=== PATIENT | male | born 1940 | race African-American/Black ===

== ENCOUNTER 2017-09-21 18:29 | Emergency (ER) | payer OTHER ==
[~2017-09-21] VITALS: Ht 177.8 cm; Wt 97.5 kg
--- NOTE | ~2017-09-21 | EKG ---
[facility] [place] [address] [place] [address] ELECTROCARDIOGRAM REPORT Name: MISBAH BARRIENTOS Room #: [facility] [id number] Admission: 09/21/17 Attend Phys: Discharge: 09/21/17 Date of : 40 Report #: [id number] THIS REPORT FOR: //name// [facility] ED Test Date: 2017-09-21 Test Time: 19:22:25 Pat Name: MISBAH BARRIENTOS Department: Room: Gender: M [employer]: TYRA : [id number] Requested By: Anthony Mcmillan Order Number: [id number] MD: Corey Mistry Measurements Intervals [place] Rate: 76 P: 50 [place]: 166 QRS: -33 QRSD: 150 T: 1 QT: 444 QTc: 500 Interpretive Statements Sinus rhythm Probable left atrial enlargement Right bundle branch block Baseline wander in lead(s) V1 Compared to ECG 01/27/2017 12:43:03 Sinus bradycardia no longer present Electronically Signed On 09-22-2017 13:22:26 CDT by Corey Mistry [email or web address] <ELECTRONICALLY SIGNED> By: Corey Mistry MD, [facility] 09/22/17 132 21 21 Corey Mistry MD, [facility] /EPI
[~2017-09-21 18:29] MED LIST: ACTOS 30 MG TAB30 M1 PO; ANTIVERT25 MG PO; DOXYCYCLINE 10100 MG PO; ENALAPRIL MALEA20 MG PO; GLUCOTROL XL5 MG PO; GLUCOTROL5 MG PO; HYDROCHLOROTHIA25 M1 PO; NAPROSYN250 MG PO; NORCO 5-325 TA1 EACH PO; PENICILLIN VK500 MG PO; SIMVASTATIN20 MG PO
[2017-09-21 20:27] LABS: ANION GAP 8 mmol/L (7-16); BUN 20 mg/dL (7-18); CALCIUM 8.9 mg/dL (8.5-10.1); CHLORIDE 110 mmol/L (98-107); CO2 26 mmol/L (21-32); CREATININE 1.5 mg/dL (0.7-1.3); GLUCOSE 142 mg/dL (74-106); POTASSIUM 4.5 mmol/L (3.5-5.1); PROTIME 10.5 Seconds (9.3-11.4); SODIUM 144 mmol/L (136-145)
[2017-09-21 20:32] LABS: ALBUMIN 3.4 g/dL (3.4-5.0); MAGNESIUM 1.9 mg/dL (1.8-2.4); SGOT 36 U/L (15-37); SGPT 22 U/L (30-65); TOTAL BILIRUBIN 1.1 mg/dL (<0.1-1.0); TROPONIN-I < 0.04 ng/mL (<0.06)
[2017-09-21] MEDS ORDERED: CLONIDINE0.1 PO (20:49)
[2017-09-21 21:16] LABS: ABSOLUTE NEUTROPHILS 3.4 thou/uL (1.4-8.2); BASOPHILS 0.6 % (0.0-2.0); HEMATOCRIT 32.4 % (42.0-52.0); HEMOGLOBIN 10.9 gm/dL (14.0-18.0); LYMPHOCYTES 23.1 % (24.0-44.0); MCH 31.2 pg (26.0-34.0); MCHC 33.6 g/dL (28.0-37.0); MCV 92.9 fL (80.0-100.0); MONOCYTES 10.3 % (1.0-8.0); PLATELET COUNT 157 thou/uL (150-400); RBC 3.49 mil/uL (4.50-6.00); RDW 15.7 % (10.5-14.5); WBC 5.3 thou/uL (4.0-11.0)
[2017-09-21 21:20] VITALS: BP 167/74
== END 2017-09-21 21:20 | disposition home or self-care (01) ==
LOC: ER 18:29
PROVIDERS: Emergency Medicine
DX: R60.0 Localized edema (principal); I12.9 Hypertensive chronic kidney disease with stage 1 through stage 4 chronic kidney disease, or unspecified chronic kidney disease; E11.22 Type 2 diabetes mellitus with diabetic chronic kidney disease; N18.9 Chronic kidney disease, unspecified; I51.7 Cardiomegaly

== ENCOUNTER 2020-02-14 08:41 | Emergency (ER) | payer OTHER ==
[~2020-02-14] VITALS: Ht 177.8 cm; Wt 97.5 kg
[~2020-02-14 08:41] MED LIST changes: +CLONIDINE0.1 PO
[2020-02-14] MEDS ORDERED: TRAMADOL 50 MG50 MG PO (10:17)
[2020-02-14] MEDS ORDERED: MOBIC7.5 MG PO (10:17)
[2020-02-14 10:35] VITALS: BP 127/76
== END 2020-02-14 10:35 | disposition home or self-care (01) ==
LOC: ER 08:41
DX: M19.041 Primary osteoarthritis, right hand (principal); I10 Essential (primary) hypertension; E11.9 Type 2 diabetes mellitus without complications; Z79.899 Other long term (current) drug therapy; Z79.84 Long term (current) use of oral hypoglycemic drugs; Z87.891 Personal history of nicotine dependence